=== PATIENT | female | born 1965 | race African-American/Black ===

== ENCOUNTER → 2016-06-17 | Day surgery (SDC) | payer OTHER ==
--- NOTE | 2016-06-18 13:20 | PATH ---
Cytology Non-Gynecological Report Patient Name: EMANUEL DE LOS SANTOS [facility]. Rec. #: [id number] /Age/Gender: 1965 (Age: 51) / F Account: [id number] Location: RADIOLOGY Taken: 06/17/2016 Received: 06/17/2016 Reported: 06/18/2016 Physicians: Luiza Cortés M.D. 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 Comment: Recommend correlation with clinical findings and follow up as clinically indicated. Electronically Signed Daniel Rabago M.D. Gross Description Received are eight direct smears, four of which are air-dried and Diff-Quik stained, and four of which are alcohol fixed and Pap stained. Also received is 20 ml of bloody formalin from which one cellblock is prepared.
== END | disposition home or self-care (01) ==
LOC: JRADIR 09:45
PROVIDERS: ATTEND Internal Medicine Endocrinology, Diabetes & Metabolism
PROC: 0G9G3ZX Drainage of Left Thyroid Gland Lobe, Percutaneous Approach, Diagnostic (ICD-10-PCS; principal; 2016-06-17)
PROC: BG44ZZZ Ultrasonography of Thyroid Gland (ICD-10-PCS; 2016-06-17)
DX: E04.1 Nontoxic single thyroid nodule (principal)
CPT/HCPCS: 76942; 88173; 88305-TC